=== PATIENT | female | born 1975 | race Caucasian/White ===

== ENCOUNTER 2016-09-03 05:05 | Inpatient (IN) | payer OTHER ==
--- NOTE | 2016-09-02 14:12 | HP ---
DELORES KENNEDY DATE OF : 73 DATE OF ADMISSION: 09/03/2016 ADMISSION DIAGNOSIS: 1. at term. 2. Poorly controlled gestational diabetes. 3. Polyhydramnios. 4. Unstable lie. 5. Advanced maternal age. PROCEDURE PLANNED: Primary section. HISTORY OF PRESENT ILLNESS: Delores Kennedy is a 41-year-old 2, para 1-0-0-1 who came to us late in her because she did not think that she could be . Her last child was born 21 years ago. She has not been using any contraception for many years, but she was convinced that she could not conceive. She has been with a new partner for the past 2 years and he is 35 years old. She had a history of polycystic ovarian and endometriosis, and was not really keeping track of her periods. She might have had a period in November. She thinks that she had symptoms of , at least since January. She was in denial of these however, because she was very sure that she could not get . Eventually, the patient did have a test that was positive. Her first ultrasound at about 24 weeks gestation predicted an estimated date of confinement of 09/13/2016. The patient has had multiple ultrasound both by us and the maternal medicine specialist. She was being followed because of an echogenic intracardiac focus that has since resolved. There was also a concern because Koko, her partner has a child with TAPVR (total anomalous pulmonary venous return). Because of this, her baby had a echocardiogram on 08/30/2016 which came back normal. Polyhydramnios has been documented a few of the ultrasounds. This baby also seems to be growing rapidly. In terms of percentile, he has gone from the 38th percentile to 49th to 73rd, and now most recently to the 84th percentile for growth. Indeed, clinically this baby is thought to be quite large and is also sitting high. From day to day, he is in a different position. I am very convinced that on 08/29/2016 he was breech with feet presenting. The next day he was vertex. Delores says that he frequently feels like he is in a transverse lie with the head to the maternal right and then kicking over on the left. Also, in these past couple of days, she has felt no presenting part causing pressure in the pelvis. The patient's ultrasound from 08/30/2016 which was done at [facility] showed the baby to be vertex at this time with an estimated weight of 7 pounds 12 ounces. Biparietal diameter was 8 out of 8. Amniotic fluid index was 7.27 m in the deepest pocket. The baby's abdominal circumference was measuring at 40 weeks gestation and the biparietal diameter 37 to 38 weeks gestation. One of our main concerns has been gestational diabetes. The patient initially was instructed about a proper diet, and started monitoring her blood sugars. She says that at first her blood sugars were pretty good though they sometimes would go up very high. Her fasting's typically were quite low in the 60's and 70's and then she would feel poorly after meals. However, her blood sugar often would be up to 140 to 160. Most recently her fasting's were around 100 to 130, and none were under 100. Her postprandials were mostly 140 to 168. The patient had been on glyburide only since 08/21/2016. She has been taking this regularly 2.5 mg every evening. She says that she actually feels better since she has been taking it. Lately, however, her blood sugars are still poorly controlled. She is thought to be at 38-1/2 weeks gestation, or perhaps further. Her baby is measuring quite large with an unstable lie. The recommendation by the [facility] was to deliver this baby by 39 weeks gestation. I have discussed options for management with Delores including the option of an indication of labor. We talked about risks and possible complications. We talked about the benefits of labor for this baby. Delores, however, is very convinced that her baby is sitting high and often transverse. She also does not feel that she could have a normal vaginal and is requesting primary section. Recalled that her first child was born 21 years ago, and weighed a little over 7 pounds. It was a fairly long labor and she did have an epidural. She does not think that she could do that again. We have also discussed the risks of the section. We have discussed the risks of delivery of an early baby particularly a male exposed to high blood sugars. She does understand that there is a potential concern for respiratory distress. Various options for management have been discussed, and the patient is requesting that we proceed with a primary section. She feels that she would like to have this baby as soon as possible. The plan was therefore developed to admit her on the morning of 09/03/2016 for primary section for delivery. course has been somewhat challenging. The patient chose not to have a verify genetic test. She had her one hour glucose tolerance test, and it came back at 151. Three hour testing came back with two elevated numbers, fasting 115, one hour 228, two hour 110, and three hour of 57. The patient also had glycohemoglobin on 07/03/2016 which came back as 5.8. Her blood type is A+. The rest of her testing has been normal except that her group B streptococcus testing was positive. At her first visit, the patient weighed 270 pounds. Currently, she weighs approximately 282 pounds. It is difficult to palpate the fundus of the uterus because of her central obesity. She has had normal blood pressures throughout the any only a trace or protein at times. Her most recent exam was on 08/29/2016, and her cervix was closed and thick. Presenting part was quite high and the baby was breech. NSD however was reactive and her most recent biophysical profile was 8 out of 8 on 08/31/2016. PAST MEDICAL HISTORY: The patient denies any major medical problems other than her weight issue. She may have had polycystic ovarian in the past, but has not had significant hypertension, or hirsutism. Her periods have always been somewhat irregular. She does have chronic nausea and heartburn. She occasional has headaches. She denies any history of renal disease, or thyroid disease. PAST SURGICAL HISTORY: Include a laparoscopic cholecystectomy several years ago. SOCIAL HISTORY: She was smoking cigarettes, but has pretty much quit. She occasionally used marijuana at the beginning of , but she has been avoiding this as well. The patient is not , but is in a stable mutually monogamous relationship with Koko for the past 2 years. She is trying to improve her overall lifestyle. FAMILY HISTORY: Negative. REVIEW OF SYSTEMS: Patient denies any upper respiratory symptoms recently. She denies any symptoms of urinary tract infection specifically, though she does have some chronic back pain. She denies any significant shortness of breath, or respiratory difficulties except when the baby is sitting really high and kicking her in her lungs. Patient denies any other recent development of symptoms. She has not traveled outside the [place] anytime recently. PHYSICAL EXAMINATION: VITALS: Blood pressure is 120/70. Pulse is normal. Respirations are normal. Weight is 281 pounds. GENERAL: Delores is a very pleasant verbal woman who is very intuitive. She is very definite about what she wants. HEENT: Normal except for some dental issues. Thyroid gland is not palpable. NECK: Supple. LUNGS: Clear to auscultation bilaterally with no rales, or wheezing. HEART: Regular rate and rhythm, no murmur was heard. ABDOMEN: Gravid, and obese with normal bowel sounds. The fundus of the uterus is quite high and she measures at least 42 cm. Position of the baby is somewhat difficult to appreciate. PELVIC: External genitalia are normal. There is no abnormal discharge. The cervix fairly high posterior 50% effaced, not dilated. The presenting part was -4 station. EXTREMITIES: Normal. IMPRESSION: Delores is a 41-year-old who is obese. She has gestational diabetes that is poorly controlled despite oral hypoglycemics. She has a large baby with an unstable lie and is now at 38-1/2 weeks gestation. She is requesting primary section for delivery of this baby. The risks and possible complications have been discussed. The plan is to proceed on 09/03/2016 for this surgery. BEVERLEY/pearl
[2016-09-03] MEDS ORDERED: CEFAZOLIN SODIUM 2 GRAM DUPLEX 2 G in Premix (D5W) 50 ml 1 EACH IV PRN ×2 (05:17→07:07)
[2016-09-03] MEDS ORDERED: IV START KIT ONE (05:20)
[2016-09-03] MEDS: LACTATED RINGERS 1,000 ML IV SCH (05:42)
[2016-09-03 05:54] LABS: HEMATOCRIT 36.7 % (37.0-47.0); HEMOGLOBIN 12.6 gm/l (12.0-16.0); MEAN CELL VOLUME 87.8 fl (81.0-99.0); MEAN CORPUSCULAR HEMOGLOBIN 30.1 pg (27.0-31.0); MEAN CORPUSCULAR HGB CONC 34.3 g/dl (33.0-37.0)
[2016-09-03 06:29] VITALS: BMI 49.9
[2016-09-03] MEDS ORDERED: FENTANYL 100 MCG/2 ML VIAL ONE (06:59)
[2016-09-03] MEDS ORDERED: MORPHINE SULFATE (DURAMORPH) 1 MG/ML 10ML AMP ONE (06:59)
[2016-09-03] MEDS ORDERED: SPINAL PROCEDURAL TRAY 1 EACH ONE (07:01)
[2016-09-03] MEDS ORDERED: FAMOTIDINE 10 MG/ML 2ML VIAL ONE (07:07)
[2016-09-03] MEDS ORDERED: CITRIC ACID/SODIUM CITRATE 15 ML UDCUP PO ONE (07:07)
[2016-09-03] MEDS ORDERED: CEFAZOLIN SODIUM 2 GRAM DUPLEX 50 ML IV ONE (07:20)
--- NOTE | 2016-09-03 07:33 | PDOC36 ---
Provider Note Subject: Pre-op note Note: Delores comes in today NPO and ready to proceed with c/section. More cramping over the weekend, but mainly heartburn right now. On exam FH is reactive, baseline 120 Abd morbidly obese, Baby is high, probably vertex, FH heard on right above the umbilicus EFW 7-8lbs Vag exam cervix not palpable, pubic arch is narrow and low No presenting part palpable. Imp: Main concern is GDM in very poor control. Glucose today is 91 fasting By our best dates she is 38w4d, but clinically may be further. Plan: Options have been discussed at length and pt refuses a Ed. Primary section this morning. Consent reviewed and signed.
[2016-09-03] MEDS ORDERED: EPHEDRINE SULFATE UD SYR 25 MG 25 MG/5 ML SYRINGE IV ONE (07:54)
[2016-09-03] MEDS ORDERED: ONDANSETRON 4 MG/2ML 2 ML VIAL ONE (08:15)
[2016-09-03] MEDS ORDERED: OXYTOCIN 10 UNITS/ML VIAL ONE ×4 (08:15→08:32)
[2016-09-03] MEDS ORDERED: DIPHENHYDRAMINE HCL 50 MG/1 ML VIAL ONE (08:31)
[2016-09-03] MEDS ORDERED: PROMETHAZINE HCL 25 MG/ML VIAL IM PRN (08:35)
[2016-09-03] MEDS ORDERED: MORPHINE SULFATE 4 MG/ML SYRINGE IV PRN (08:35)
[2016-09-03] MEDS ORDERED: NALOXONE HCL 0.4 MG/ML VIAL IV PRN (08:35)
[2016-09-03] MEDS ORDERED: HYDROMORPHONE HCL 2 MG/ML SYRINGE IV PRN (08:35)
[2016-09-03] MEDS ORDERED: ONDANSETRON 4 MG/2ML 2 ML VIAL IV PRN ×2 (08:35→10:04)
[2016-09-03] MEDS ORDERED: NALBUPHINE HCL 20 MG/ML AMP IV PRN (08:35)
[2016-09-03] MEDS ORDERED: DIPHENHYDRAMINE HCL 50 MG/1 ML VIAL IV PRN ×2 (08:35→10:04)
[2016-09-03] MEDS ORDERED: MORPHINE SULFATE 10 MG/ML SYRINGE IV PRN (08:35)
[2016-09-03] MEDS ORDERED: HYDROMORPHONE HCL 1 MG/ML SYRINGE IV PRN (08:35)
[2016-09-03] MEDS ORDERED: EPHEDRINE SULFATE 50 MG/ML 1ML VIAL IV PRN (08:35)
[2016-09-03] MEDS ORDERED: KETOROLAC TROMETHAMINE 30 MG/ML 1 ML VIAL ONE (08:59)
[2016-09-03] MEDS ORDERED: MORPHINE SULFATE 2 MG/ML SYRINGE ONE (09:56)
[2016-09-03] MEDS ORDERED: LANOLIN 50 APPLIC/7G TUBE TP PRN (10:04)
[2016-09-03] MEDS ORDERED: MEASLES,MUMPS&RUBELLA VACCINE 0.5 ML VIAL SUB-Q V ONE (10:04)
[2016-09-03] MEDS ORDERED: ALBUTEROL SULFATE MDI 60 PUFFS/INHALER IH PRN (10:04)
[2016-09-03] MEDS ORDERED: DIPHTH,PERTUSS(ACELL),TET VAC 0.5 ML VIAL IM V ONE (10:04)
[2016-09-03] MEDS ORDERED: KETOROLAC TROMETHAMINE 30 MG/ML 1 ML VIAL IV PRN (10:04)
[2016-09-03] MEDS ORDERED: DIPHENHYDRAMINE HCL 25 MG CAPSULE PO PRN (10:04)
[2016-09-03] MEDS ORDERED: MORPHINE SULFATE 2 MG/ML SYRINGE IV PRN (10:26)
[2016-09-03] MEDS: OXYCODONE/ACETAMINOPHEN 5/325 MG TABLET PO PRN (10:54)
--- NOTE | 2016-09-03 13:09 | OP ---
PAYTON RYAN : 1975 DATE OF OPERATION: September 03, 2016 PREOPERATIVE DIAGNOSES: 1. Poorly controlled gestational diabetes. 2. Unstable lie. 3. Uninducible cervix. 4. Obesity. 5. at 38 1/2 weeks gestation. POST OPERATIVE DIAGNOSES: 1. Poorly controlled gestational diabetes. 2. Unstable lie. 3. Uninducible cervix. 4. Obesity. 5. at 38 1/2 weeks gestation. OPERATION PERFORMED: PRIMARY SECTION (LOWER UTERINE SEGMENT TRANSVERSE INCISION). SURGEON: She Carlos M.D. INSTITUTION LIBRARIAN: Armanod Moore M.D. ANESTHESIA: Chasity CastilloN.Ct, spinal anesthesia. ESTIMATED BLOOD LOSS: 700 mL. FINDINGS: The patient had a large pannus which was elevated with the [facility] pannus retention system. The patient had had a prior abdominal surgery but no significant intraperitoneal adhesions. She was found to have a baby boy in a cephalic lie with the back to the maternal right. There was significant polyhydramnios. The baby weighed 7 pounds and 10 ounces with APGARS of 9 at one minute and 9 at five minutes. He was born at 0811 hours on September 03, 2016. PROCEDURE: On the morning of September 03, 2016 after the usual preoperative preparations were completed in the patient's room, the patient was brought to the operating room and placed on the operating room table in a sitting position. The usual monitoring leads were placed. Spinal anesthesia was then administered without difficulty. The patient was then placed in a supine position with a wedge under the right hip. After the spinal had taken effect, a Stearns catheter was placed. Patient was noted at that time to have a significant vaginal yeast infection. The abdomen was then prepped and draped for a transverse suprapubic incision. It was after the prep had dried, that we placed the pannus retention system according to the recommendations and this did elevate the pannus and expose the suprapubic area very nicely. A timeout was performed verifying proper patient, procedure, position, personnel and equipment. After verifying an adequate level of anesthesia, a transverse incision was made just above the patient's prior incision. This was carried down through a thick adipose layer with sharp and blunt dissection and using cautery for hemostasis. The fascia was incised the length of the incision. It was mobilized inferiorly and superiorly by sharp and blunt dissection. The muscles were in the midline. The peritoneum was identified and opened vertically. The largest Julian retractor was then placed, and this exposed the lower uterine segment well. The visceral peritoneum was opened in a transverse direction and then mobilized inferiorly. A transverse incision was then made in the lower uterine segment and then carried down carefully to the uterine cavity. Membranes were ruptured. There was a large amount of clear fluid. The baby was in a cephalic lie with the head toward the right side of the pelvis and not engaged at all. The head was gently guided through the incision and then the remainder of the baby was delivered without difficulty. This was a vigorous baby boy who was dried and evaluated while his cord was allowed to pulsate. He had a beautiful long, thick cord with two arteries and one vein. After approximately one minute it was clamped and then cut, and the baby was handed to the resuscitation nurse for evaluation. It seems that initially he did well but clearly his lungs were wet. He did need just a little bit of CPAP to help maintain his oxygen saturation. He was suctioned several times and approximately 18 mL of fluid were removed from his stomach and airway. The baby has done well in the period. After the baby was handed off, cord blood was obtained in the usual fashion. The placenta then delivered almost spontaneously. It was posterior and fundal. All blood clots and debris were removed from the uterus. T clamps were placed on the uterine incision. The uterus was exteriorized for part of the repair. The uterus was closed with a continuous interlocking suture of #1-0 Chromic. A second layer was used to imbricate the first layer. There were some bleeding points, and this was controlled with #0 Chromic suture. The pelvis was well irrigated with some warm saline. The uterus was placed back within the peritoneal cavity and further irrigation was done. Hemostasis was again verified. Lap, sponge and instrument counts were reported as correct. The abdomen was then closed in layers as follows. Peritoneum and muscle were reapproximated in the midline with some #2-0 Vicryl. The fascia was closed with #0 PDS looped suture. The adipose layer was closed with some #2-0 plain suture and then the skin was reapproximated with #4-0 Monocryl. SteriStrips were placed, followed by a bandage. The pannus retention system was then removed, and there was no evidence of any injury to the skin. The patient was cleaned up. She was transferred to her bed and taken to her postoperative recovery room in stable condition.
[2016-09-03] MEDS: OXYCODONE HCL 5 MG TABLET PO PRN ×3 (16:27→23:02)
[2016-09-03] MEDS: IBUPROFEN 800 MG TABLET PO PRN ×2 (16:27→22:10)
[2016-09-03] MEDS: DOCUSATE SODIUM 100 MG CAPSULE PO SCH (19:18)
[2016-09-04] MEDS: CALCIUM CARBONATE 500 MG TAB.CHEW PO PRN ×2 (02:51→19:05)
[2016-09-04] MEDS: OXYCODONE HCL 5 MG TABLET PO PRN (02:51)
[2016-09-04] MEDS: OXYCODONE/ACETAMINOPHEN 5/325 MG TABLET PO PRN ×5 (05:21→22:29)
[2016-09-04] MEDS: IBUPROFEN 800 MG TABLET PO PRN ×3 (05:21→19:06)
[2016-09-04] MEDS: KETOROLAC TROMETHAMINE 30 MG/ML 1 ML VIAL IV SCH ×2 (05:59→06:00)
[2016-09-04] MEDS: LACTATED RINGERS 1,000 ML IV SCH ×5 (05:59→21:13)
[2016-09-04] MEDS: DOCUSATE SODIUM 100 MG CAPSULE PO SCH ×4 (06:00→21:13)
[2016-09-04 07:00] LABS: HEMATOCRIT 29.9 % (37.0-47.0); HEMOGLOBIN 9.9 gm/l (12.0-16.0); MEAN CELL VOLUME 89.8 fl (81.0-99.0); MEAN CORPUSCULAR HEMOGLOBIN 29.7 pg (27.0-31.0); MEAN CORPUSCULAR HGB CONC 33.1 g/dl (33.0-37.0); RED CELL DISTRIBUTION WIDTH 14.2 % (11.5-14.5)
--- NOTE | 2016-09-04 07:47 | PDOC44 ---
- Subjective Day: 1 Pt has been up several times; out to smoke twice; I asked about this: she said she wanted to try it and it tasted bad. She is just keeping Koko company while he smokes. We discussed SIDS and the importance of not exposing the baby. Reports Flatus, Reports Pain Tolerable, Reports , Reports Lochia Moderate - Objective Temp Pulse Resp BP Pulse Ox 98.4 F 78 16 101/50 97 09/04/16 07:34 09/04/16 07:34 09/04/16 07:34 09/04/16 07:34 09/03/16 12:41 Lab Results 09/04/16 06:30 WBC 15.7 H RBC 3.33 L Hgb 9.9 L D Hct 29.9 L Plt Count 234 Current Medications Generic Name Dose Route Start Last Admin Trade Name Freq PRN Reason Stop Dose Admin Albuterol Sulfate 0 puffs 09/03/16 10:04 Ventolin Hfa Mdi IH PRN PRN Wheezing Calcium Carbonate/Glycine 500 mg 09/03/16 10:04 09/04/16 02:51 Tums PO 500 mg PRN PRN Administration Bloating,Gas,Abd Distension Diphenhydramine HCl 25 - 50 mg 09/03/16 10:04 Benadryl PO Q6H PRN Itching (Mild/Moderate) Diphenhydramine HCl 25 - 50 mg 09/03/16 10:04 Benadryl IV Q6H PRN Itching (Severe) Diphenhydramine HCl 25 - 50 mg 09/03/16 08:35 Benadryl IV 09/04/16 08:34 Q4H PRN Itching Docusate Sodium 100 mg 09/03/16 21:00 09/04/16 06:00 Colace PO Not Given BID LILLIAN Emollient Ointment 1 applic 09/03/16 10:04 [id number] TP PRN PRN sore nipples Ephedrine Sulfate 5 - 10 mg 09/03/16 08:35 Ephedrine Sulfate IV 09/04/16 08:34 Q5M PRN Ferrous Sulfate 325 mg 09/04/16 09:00 Ferrous Sulfate PO DAILY LILLIAN Fluconazole 150 mg 09/04/16 09:00 Diflucan PO 09/04/16 09:01 X1 ONE Hydromorphone HCl 0.5 - 2 mg 09/03/16 08:35 Dilaudid IV 09/04/16 08:34 Q1H PRN PRN break through pain Hydromorphone HCl 0.5 - 2 mg 09/03/16 08:35 Dilaudid IV 09/04/16 08:34 Q1H PRN Pain Lactated Ringer's 1,000 mls @ 125 mls/hr 09/03/16 10:04 09/04/16 06:00 Lactated Ringers IV Not Given .Q8H LILLIAN Ibuprofen 800 mg 09/03/16 10:04 09/04/16 05:21 Motrin PO 800 mg Q6H PRN Administration Pain Ketorolac Tromethamine 30 mg 09/03/16 10:04 Toradol IV Q6H PRN Pain (Mild/Moderate) Ketorolac Tromethamine 30 mg 09/03/16 08:35 09/04/16 06:00 Toradol IV 09/04/16 08:34 Not Given Q6H [facility] Morphine Sulfate 1 - 5 mg 09/03/16 10:26 Morphine Sulfate IV 09/04/16 10:27 Q1H PRN Pain (Breakthrough) Morphine Sulfate 1 - 5 mg 09/03/16 08:35 09/03/16 10:10 Morphine Sulfate IV 09/04/16 08:34 2 mg Q1H PRN Administration Pain (Breakthrough) Morphine Sulfate 1 - 5 mg 09/03/16 08:35 Morphine Sulfate IV 09/04/16 08:34 Q1H PRN Pain (Breakthrough) Multivi/Iron Carb/Fe Sulf/FA/Prenat 1 tab 09/04/16 09:00 Plus PO DAILY [facility] Nalbuphine HCl 1 - 5 mg 09/03/16 08:35 Nubain IV 09/04/16 08:34 Q4H PRN Itching Naloxone HCl 0.2 - 0.4 mg 09/03/16 08:35 Narcan IV 09/04/16 08:34 Q5M PRN Ondansetron HCl 4 mg 09/03/16 10:04 Zofran IV Q6H PRN Nausea/Vomiting Ondansetron HCl 4 mg 09/03/16 08:35 Zofran IV 09/04/16 08:34 Q6H PRN Nausea/Vomiting Oxycodone HCl 5 - 10 mg 09/03/16 10:04 09/04/16 02:51 Roxicodone PO 10 mg Q3H PRN Administration Pain (Severe) Oxycodone/Acetaminophen 1 - 2 tab 09/03/16 10:04 09/04/16 05:21 Percocet 5/325 PO 2 tab Q4H PRN Administration Pain (Moderate) Promethazine HCl 6.25 - 12.5 mg 09/03/16 08:35 Phenergan IM 09/04/16 08:34 Q4H PRN Nausea/Vomiting Sodium Chloride 10 ml 09/03/16 10:04 Normal Saline 10ml Flush IV PRN PRN IV Flush Sodium Chloride 10 ml 09/03/16 17:00 09/04/16 02:31 Normal Saline 10ml Flush IV 10 ml Q8HR LILLIAN Administration - Physical Exam General: Afebrile Psych/Mental Status: Mood/Affect Appropriate, Bonding Well Neurological: Oriented x 4, Normal Speech Lungs: Clear to Auscultation Bilaterally Cardiovascular: Regular Rate and Rhythm Abdomen: Normal Bowel Sounds Genitourinary: Normal Female Genitalia Skin: Normal Color, Warm Wound GRAPHICS INTERN: Dressing in Place, Dressing Clean/Dry/Intact - Problems:Assessment/Plan (1) Gestational diabetes Status: Acute Assessment/Plan: Plan is for 2H GTT at 3 months (2) delivery delivered Status: Acute Assessment/Plan: Pt recovering well. (3) Malpresentation before onset of labor Qualifiers: Fetus number: single or unspecified fetus Qualifier Code: (O32.9XX0) Maternal care for malpresentation of fetus, unspecified, not applicable or unspecified Status: Acute Assessment/Plan: Oblique lie with unengaged fetus and polyhydramnios. Disposition: Anticipate DC Home Tomorrow
--- NOTE | 2016-09-04 07:48 | PCMBPN ---
Brief Post Op Note: Date of Procedure: 09/03/16 Start Time: 0803 Preoperative Diagnosis: 1. Poorly controlled GDM 2. Unstable lie, un-inducible cervix 3. at 38w4d Postoperative Diagnosis: Same Procedure: Primary section (low uterine transverse incision) Surgeon: She Carlos Assist:Armando Moore MD Anesthesia: Spinal, Kermit Chicas LITIGATION ATTORNEY ASSOCIATE Findings: morbid central obesity, poly-hydramnios, cephalic presentation, boy "Keenyn" [id number] 9/9, BT 0811, "wet lungs" responded to CPAP Condition: Fair Complications: none IV Fluids: mLs of LR Urine Output: mLs Estimated Blood Loss: 700 mLs Tourniquet Time: N/A Specimens: N/A Implants: N/A Drains: N/A
[2016-09-04] MEDS ORDERED: FLUCONAZOLE 150 MG TABLET PO ONE (09:00)
[2016-09-04] MEDS: FERROUS SULFATE (65 Fe) 325 MG TABLET PO SCH ×2 (09:18→19:06)
[2016-09-04] MEDS: PRENATAL VIT/FE FUMARATE/FA 1 TABLET PO SCH ×2 (09:18→19:06)
[2016-09-05] MEDS: IBUPROFEN 800 MG TABLET PO PRN ×4 (01:27→19:31)
[2016-09-05] MEDS: LACTATED RINGERS 1,000 ML IV SCH ×3 (04:04→17:36)
[2016-09-05] MEDS: OXYCODONE/ACETAMINOPHEN 5/325 MG TABLET PO PRN ×5 (04:09→22:42)
[2016-09-05] MEDS: KETOROLAC TROMETHAMINE 30 MG/ML 1 ML VIAL IV SCH (07:26)
--- NOTE | 2016-09-05 08:49 | PDOC44 ---
- Subjective Day: 2 Reports Pain Tolerable, Reports , Reports Lochia Light, Reports Tolerating Regular Diet, Reports Other (ambulating, showered) - Objective Temp Pulse Resp BP Pulse Ox 98.1 F 88 18 103/54 97 09/05/16 07:41 09/05/16 07:41 09/05/16 07:41 09/05/16 07:41 09/03/16 12:41 Current Medications Generic Name Dose Route Start Last Admin Trade Name Freq PRN Reason Stop Dose Admin Albuterol Sulfate 0 puffs 09/03/16 10:04 Ventolin Hfa Mdi IH PRN PRN Wheezing Calcium Carbonate/Glycine 500 mg 09/03/16 10:04 09/04/16 19:05 Tums PO 500 mg PRN PRN Administration Bloating,Gas,Abd Distension Diphenhydramine HCl 25 - 50 mg 09/03/16 10:04 Benadryl PO Q6H PRN Itching (Mild/Moderate) Diphenhydramine HCl 25 - 50 mg 09/03/16 10:04 Benadryl IV Q6H PRN Itching (Severe) Docusate Sodium 100 mg 09/03/16 21:00 09/04/16 21:13 Colace PO Not Given BID LILLIAN Emollient Ointment 1 applic 09/03/16 10:04 [id number] TP PRN PRN sore nipples Ferrous Sulfate 325 mg 09/04/16 09:00 09/04/16 19:06 Ferrous Sulfate PO 325 mg DAILY LILLIAN Administration Lactated Ringer's 1,000 mls @ 125 mls/hr 09/03/16 10:04 09/05/16 04:04 Lactated Ringers IV Not Given .Q8H LILLIAN Ibuprofen 800 mg 09/03/16 10:04 09/05/16 07:38 Motrin PO 800 mg Q6H PRN Administration Pain Ketorolac Tromethamine 30 mg 09/03/16 10:04 Toradol IV Q6H PRN Pain (Mild/Moderate) Multivi/Iron Carb/Fe Sulf/FA/Prenat 1 tab 09/04/16 09:00 09/04/16 19:06 Plus PO 1 tab DAILY LILLIAN Administration Ondansetron HCl 4 mg 09/03/16 10:04 Zofran IV Q6H PRN Nausea/Vomiting Oxycodone HCl 5 - 10 mg 09/03/16 10:04 09/04/16 02:51 Roxicodone PO 10 mg Q3H PRN Administration Pain (Severe) Oxycodone/Acetaminophen 1 - 2 tab 09/03/16 10:04 09/05/16 08:02 Percocet 5/325 PO 2 tab Q4H PRN Administration Pain (Moderate) Sodium Chloride 10 ml 09/03/16 10:04 Normal Saline 10ml Flush IV PRN PRN IV Flush Sodium Chloride 10 ml 09/03/16 17:00 09/05/16 04:04 Normal Saline 10ml Flush IV Not Given Q8HR LILLIAN - Physical Exam General: Afebrile, No Acute Distress Fundus: Firm, Below Umbilicus Abdomen: Normal Bowel Sounds, No Tenderness, No Distention Disposition: Anticipate DC Home Tomorrow (Doing well. Regular postop care. Baby has jaundice, will stay till tomorrow.)
[2016-09-05] MEDS: FERROUS SULFATE (65 Fe) 325 MG TABLET PO SCH (09:03)
[2016-09-05] MEDS: PRENATAL VIT/FE FUMARATE/FA 1 TABLET PO SCH (09:03)
[2016-09-05] MEDS: DOCUSATE SODIUM 100 MG CAPSULE PO SCH ×3 (09:04→22:56)
[2016-09-05] MEDS ORDERED: PNEUMOCOCCAL 23-VAL P-SAC VAC 0.5 ML VIAL IM V ONE (19:49)
[2016-09-06] MEDS: IBUPROFEN 800 MG TABLET PO PRN ×2 (02:03→09:24)
[2016-09-06] MEDS: OXYCODONE/ACETAMINOPHEN 5/325 MG TABLET PO PRN ×2 (03:57→09:24)
[2016-09-06] MEDS: LACTATED RINGERS 1,000 ML IV SCH (04:18)
--- NOTE | 2016-09-06 07:23 | PDOC39B ---
Hospital Course: ADMIT DATE: 09/03/16 DISCHARGE DATE: 09/06/16 ADMISSION DIAGNOSES: intrauterine at 38.4 weeks, oblique and unstable lie, polyhydramnios, gestational diabetes poorly controlled, unfavorable cervix PROCEDURES: primary Cesarian section HISTORY OF PRESENT ILLNESS: 41 year old G2 T1 L1 at 38 weeks 1 days presenting with polyhydramnios, poorly controlled gestational diabetes, unfavorable cervix, oblique and unstable lie HOSPITAL COURSE: The patient had an uneventful post operative/post course. By day of discharge the patient is ambulating, eating, voiding, and passing flatus without difficulty. Pain is controlled and lochia is appropriate. She is [] - Physical Exam Vital Signs: Temp Pulse Resp BP Pulse Ox 98.1 F 83 20 113/71 97 09/06/16 02:10 09/06/16 02:10 09/06/16 02:10 09/06/16 02:10 09/03/16 12:41 General: Afebrile, No Acute Distress Psych/Mental Status: Mood/Affect Appropriate, Judgment/Insight Intact, Bonding Well Lungs: Clear to Auscultation Bilaterally, Normal Air Movement Breast: Soft, Skin intact, Nipples Intact, No Tenderness, No Erythema, No Engorged Fundus: Firm, Midline, Below Umbilicus, Other (nontender) Abdomen: Normal Bowel Sounds, Obese, Other (passed flatus, no bowel movement yet ), No Tenderness Genitourinary: Other (voiding without difficulty) Lochia: Light Extremities: No Tenderness Skin: Rash, No Induration Wound: Dressing in Place, Dressing Clean/Dry/Intact, Rash (skin rash superior to incision, non tender,), Well Approximated, No Drainage Other Findings: patient requesting breast pump - Discharge Plan Condition: Stable Disposition: Home Instruction Forms: Section Discharge Instructions Additional Instructions: nothing in vagina x 6 weeks, percocet ordered for analgesia, patient has ibuprofen at home. breast pump ordered. may drive a car in one week. office visit [address] martini. fasting and 2hr pp ordered as an outpatient. moisturizers: apply to rash at home. Prescriptions: FERROUS SULFATE (65 Fe) [IRON FERROUS SULFATE 325 MG TABLET (SHF)] 325 mg PO DAILY #30 tab Oxycodone HCl/Acetaminophen [PERCOCET 5/325 MG TABLET (SHF)] 1 - 2 tab PO Q4H PRN #14 tablet PRN Reason: Pain (Moderate)
[2016-09-06 07:35] VITALS: BP 117/71
[2016-09-06] MEDS: PRENATAL VIT/FE FUMARATE/FA 1 TABLET PO SCH (09:23)
[2016-09-06] MEDS: FERROUS SULFATE (65 Fe) 325 MG TABLET PO SCH (09:23)
[2016-09-06] MEDS: DOCUSATE SODIUM 100 MG CAPSULE PO SCH (09:23)
== END 2016-09-06 11:49 | disposition home or self-care (01) | DRG 765 ==
LOC: FBC 05:05 → EDSTATUS 09-13 14:58
PROVIDERS: ADMIT Obstetrics & Gynecology; ATTEND Obstetrics & Gynecology
PROC: 10D00Z1 Extraction of Products of Conception, Low, Open Approach (ICD-10-PCS; principal; 2016-09-03)
DX: O24.425 Gestational diabetes mellitus in childbirth, controlled by oral hypoglycemic drugs (principal); O40.3XX0 Polyhydramnios, third trimester, not applicable or unspecified; Z37.0 Single live birth; O99.214 Obesity complicating childbirth; E66.01 Morbid (severe) obesity due to excess calories; O99.334 Smoking (tobacco) complicating childbirth; F17.210 Nicotine dependence, cigarettes, uncomplicated; O32.2XX0 Maternal care for transverse and oblique lie, not applicable or unspecified; O09.513 Supervision of elderly primigravida, third trimester; Z3A.38 38 weeks gestation of pregnancy